=== PATIENT | male | born 1955 | race African-American/Black ===

== ENCOUNTER 2016-11-20 13:31 | Emergency (ER) | payer MEDICARE, OTHER ==
--- NOTE | ~2016-11-20 | CT104 ---
[facility] A Service of [facility] RADIOLOGY TEXT RESULTS PATIENT: AMY BONILLA LOCATION: SED : 53 UNIT #: [id number] AGE: [address]: Karma Roe APRN SEX: M ORDER DR: [id number] [place] [address] [id number] E MR#: [id number] Acc #: [id number] NAME: AMY BONILLA : 1955 SEX: M STUDY DATE/TIME: 11/20/2016 14:41 UNIT: SED ROOM: STUDY DESCRIPTION: CT Orbits Wo Contrast Attending Physician: Karma Roe A.P.R.N. Referring Physician: Karma Roe A.P.R.N. Ordering Physician: Karma Roe A.P.R.N. Primary Care Physician: Brody Lindsey M.D. MEDICAL IMAGING REPORT This report is preliminary unless electronic signature is present. EXAM CT scan of the orbits without contrast. DATE OF EXAM 11/20/2016 INDICATION Hit in right eye Wednesday with pain that is getting worse. Eyes are watering and has light sensitivity. TECHNIQUE Axial 2 mm images were obtained through the orbits. NOTE: This CT exam was performed with one or more of the following radiation dose reduction techniques: automatic exposure control, adjustment of mA and/or kV according to patient size, and iterative reconstruction. FINDINGS No fracture is visible. The globes and orbital soft tissues appear normal. The sinuses are clear. There are no foreign bodies. IMPRESSION Normal unenhanced orbital CT scan. Dictated by... Jovani Rey M.D. THIS IS AN ELECTRONICALLY VERIFIED REPORT Jovani Rey M.D. at 11/20/2016 11:08 PM GARFIELD/lokesh [facility] A Service [facility] RADIOLOGY TEXT RESULTS PATIENT: AMY BONILLA LOCATION: SED : 53 UNIT #: [id number] AGE: [address]: Karma Roe APRN SEX: M ORDER DR: TD: 11/20/2016 16:36 JOB #: [id number] MEDICAL IMAGING REPORT Page 1 of 1
[~2016-11-20 13:31] MED LIST: ALEVE OTC PRN; ALEVE220 M1 PO; ALLERGY PILL; ALPRAZOLAM; AMOXICILLIN500 M1 PO; AMOXICILLIN875 MG PO; ASPIRIN PO; ASPIRIN81 M1 PO; ASPIRIN81 M2 PO; AUGMENTIN875 MG PO; BACLOFEN20 M1 PO; BACTRIM DS TABL1 TA1 PO; BENZONATATE PO; BP MED; CLARITIN10 M2 PO; CLEOCIN PO; CLONIDINE PO; CLONIDINE TOP; COLCHICINE PO; COLCRYS0.6 M2 PO; COLCRYS0.6 MG PO; DIAZEPAM10 MG PO; DICLOFENAC; DICYCLOMINE HCL20 MG PO; DOXYCYCLINE MO100 MG PO; EYE ALLERGY REL15 M1 OP; FIORICET 50-301 EACH PO; FIORICET1 TAB PO; FLEXERIL; FLEXERIL10 M1 PO; FLEXERIL10 MG PO; FLOMAX0.4 M1; FLOMAX0.4 M1 PO; GOUT MED; HYDROCODON-ACE1 EAC5 PO; HYDROMET SYRUP480 ML PO; IBUPROFEN PO; IBUPROFEN800 MG PO; INDOCIN SR75 MG PO; INDOMETHACIN25 MG PO; INDOMETHACIN50 MG PO; KETOPROFEN PO; LISINOPRIL; LISINOPRIL PO; LISINOPRIL-HCTZ1 T15 PO; LISINOPRIL10 MG PO; LISINOPRIL20 MG PO; LISINOPRIL30 MG PO; LORAZEPAM1 MG PO; LORTAB 10-5001 EACH; LORTAB 101 TAB 10/5 PO; MEDROL PO; MOBIC15 MG PO; MOTRIN PO; NAPROSYN-EC500 M1 PO; NAPROSYN500 MG PO; NORCO 10-325 TA1 TAB PO; NORCO1 TAB 10/3; NORFLEX100 M1 PO; PERCOCET5/325 PO; PHENERGAN25 MG PO; PREDNISONE PO; PREDNISONE10 MG PO; PREDNISONE10 MG/DOSE PO; SUDAFED PO; TESSALON PERLE100 M1 PO; TYLENOL #3 PO; ULTRAM PO; VALIUM10 MG PO; VICODIN 5/500 T1 TAB PO; VOLTAREN75 MG PO; XANAX1 MG PO; ZYLOPRIM; ZYLOPRIM100 MG PO; ZYRTEC-D TABLE1 EACH PO; ZYRTEC10 M5; [UNRECOGNIZED DRUG - OTHER] PO; [UNRECOGNIZED DRUG - REMARK]; [UNRECOGNIZED DRUG - REMARK]
== END 2016-11-20 16:22 | disposition home or self-care (01) ==
LOC: SED 13:31
DX: H20.00 Unspecified acute and subacute iridocyclitis (principal); I10 Essential (primary) hypertension; M10.9 Gout, unspecified; F41.9 Anxiety disorder, unspecified; Z86.14 Personal history of Methicillin resistant Staphylococcus aureus infection
CPT/HCPCS: 70480; 99284

== ENCOUNTER 2016-12-01 18:02 | Emergency (ER) | payer MEDICARE ==
--- NOTE | ~2016-12-01 | CR230 ---
[facility]. [facility] A Service of [facility] RADIOLOGY TEXT RESULTS PATIENT: AMY BONILLA LOCATION: SED : 53 UNIT #: [id number] AGE: [address]: Chantel Arauz APRN SEX: M ORDER DR: [id number] [address] [address] [id number] E MR#: [id number] Acc #: [id number] NAME: AMY BONILLA : 1955 SEX: M STUDY DATE/TIME: 12/01/2016 18:18 UNIT: SED ROOM: STUDY DESCRIPTION: CR Shoulder Min 2 View Rt Attending Physician: Chantel Arauz A.P.R.N. Ordering Physician: Chantel Whaley A.P.R.N. Primary Care Physician: Brody Lindsey M.D. MEDICAL IMAGING REPORT This report is preliminary unless electronic signature is present. EXAM Right shoulder, 12/01/2016 INDICATION [facility] Fell today. Pain in the right shoulder and left knee. TECHNIQUE 3 views right shoulder, no comparisons. FINDINGS There are mild degenerative changes in the AC joint. No acute fracture. No dislocation or shoulder separation. IMPRESSION Mild degenerative change, otherwise negative. Dictated by... Willem Bearden M.D. THIS IS AN ELECTRONICALLY VERIFIED REPORT Willem Bearden M.D. at 12/02/2016 8:38 AM Jelly TD: 12/02/2016 05:33 JOB #: [id number] MEDICAL IMAGING REPORT Page 1 of 1
--- NOTE | ~2016-12-01 | CR172 ---
[facility] A Service of [facility] RADIOLOGY TEXT RESULTS PATIENT: AMY BONILLA LOCATION: SED : 53 UNIT #: [id number] AGE: [address]: Chantel Arauz APRN SEX: M ORDER DR: [id number] [address] [address] [id number] E MR#: [id number] Acc #: [id number] NAME: AMY BONILLA : 1955 SEX: M STUDY DATE/TIME: 12/01/2016 18:18 UNIT: SED ROOM: STUDY DESCRIPTION: CR Knee 3 Views Lt Attending Physician: Chantel Arauz A.P.R.N. Ordering Physician: Chantel Whaley A.P.R.N. Primary Care Physician: Brody Lindsey M.D. MEDICAL IMAGING REPORT This report is preliminary unless electronic signature is present. EXAM Left knee, 12/01/2016 INDICATIONS Slipped on water on the floor[place]. Symptoms began at 10 o'clock today. Pain in the left knee. TECHNIQUE Three views left knee, no comparisons. FINDINGS Probable small joint effusion. There is no acute fracture. There are degenerative changes in all 3 compartments related to degenerative disc disease. Joint space narrowing most conspicuous in the medial compartment. There is evidence of CPPD. IMPRESSION 1. Probable small joint effusion. No acute fracture. 2. Degenerative changes and mild CPPD. Dictated by... Willem Bearden M.D. THIS IS AN ELECTRONICALLY VERIFIED REPORT Willem Bearden M.D. at 12/02/2016 8:38 AM Little TD: 12/02/2016 05:46 JOB #: [id number] MEDICAL IMAGING REPORT [facility] A Service of [facility] RADIOLOGY TEXT RESULTS PATIENT: AMY BONILLA LOCATION: SED : 53 UNIT #: [id number] AGE: [address]: Chantel Arauz APRN SEX: M ORDER DR: Page 1 of 1
== END 2016-12-01 19:21 | disposition home or self-care (01) ==
LOC: SED 18:02
DX: S39.011A Strain of muscle, fascia and tendon of abdomen, initial encounter (principal); S83.92XA Sprain of unspecified site of left knee, initial encounter; F17.210 Nicotine dependence, cigarettes, uncomplicated; I10 Essential (primary) hypertension; Z79.899 Other long term (current) drug therapy; W19.XXXA Unspecified fall, initial encounter; Y92.9 Unspecified place or not applicable
CPT/HCPCS: 29530; 73030; 73562; 99284